=== PATIENT | female | born 1970 | race Caucasian/White ===

== ENCOUNTER 2019-10-12 15:47 | Emergency (ER) | payer BC ==
[~2019-10-12] VITALS: Ht 154.9 cm; Wt 74.4 kg
[2019-10-12 15:56] VITALS: Ht 154.9 cm; Wt 74.4 kg
[2019-10-12 16:52] LABS: CALCIUM 8.4 mg/dL (8.5-10.1); CARBON DIOXIDE 23.5 mmol/L (21-32); CHLORIDE SERUM 98 mmol/L (98-107); CREATININE SERUM 0.7 mg/dL (0.6-1.0); GFR1 > 60 mL/min; GLUCOSE SERUM 150 mg/dL (74-106); POTASSIUM SERUM 3.8 mmol/L (3.5-5.1); SODIUM SERUM 132 mmol/L (136-145)
[2019-10-12 16:57] LABS: ALKALINE PHOSPHATASE 85 U/L (46-116); ALT/SGPT 30 U/L (14-59); AST/SGOT 15 U/L (15-37); BILIRUBIN TOTAL 0.5 mg/dL (0.20-1.00); TOTAL PROTEIN, SERUM 6.9 g/dL (6.4-8.2)
[2019-10-12 17:04] LABS: ALBUMIN 3.3 g/dL (3.4-5.0)
[2019-10-12 17:12] LABS: BASOPHIL % 0.4 % (0-2)
[2019-10-12 17:14] LABS: PLATELET COUNT 437 x10^3mcL (130-400); RED CELL DISTRIBUTION WIDTH 22.5 % (11.5-14.5)
[2019-10-12 17:54] LABS: rbc morphology (normal/abnorm) ABNORMAL (NORMAL)
[2019-10-12 18:28] VITALS: BP 125/74
== END 2019-10-12 18:28 | disposition home or self-care (01) ==
LOC: ED 15:47
PROVIDERS: Emergency Medicine
DX: N93.8 Other specified abnormal uterine and vaginal bleeding (principal); D50.0 Iron deficiency anemia secondary to blood loss (chronic); N39.0 Urinary tract infection, site not specified; N83.201 Unspecified ovarian cyst, right side; Z88.1 Allergy status to other antibiotic agents
CPT/HCPCS: Q0092

== ENCOUNTER 2019-10-17 00:53 | Inpatient (IN) | payer BC ==
[~2019-10-17] VITALS: Ht 154.9 cm; Wt 73.9 kg
[2019-10-17 01:04] VITALS: Ht 154.9 cm; Wt 73.9 kg
[2019-10-17 02:57] LABS: BASOPHIL % 0.3 % (0-2)
[2019-10-17 03:00] LABS: RED CELL DISTRIBUTION WIDTH 20.7 % (11.5-14.5)
[2019-10-17 03:01] LABS: CALCIUM 8.4 mg/dL (8.5-10.1); CARBON DIOXIDE 25.1 mmol/L (21-32); CHLORIDE SERUM 104 mmol/L (98-107); CREATININE SERUM 0.6 mg/dL (0.6-1.0); GFR1 > 60 mL/min; GLUCOSE SERUM 119 mg/dL (74-106); PLATELET COUNT 484 x10^3mcL (130-400); POTASSIUM SERUM 3.6 mmol/L (3.5-5.1); SODIUM SERUM 139 mmol/L (136-145)
[2019-10-17 03:02] LABS: rbc morphology (normal/abnorm) ABNORMAL (NORMAL)
[2019-10-17 03:10] LABS: ALBUMIN 3.2 g/dL (3.4-5.0); ALKALINE PHOSPHATASE 75 U/L (46-116); ALT/SGPT 30 U/L (14-59); AST/SGOT 20 U/L (15-37); BILIRUBIN TOTAL 0.6 mg/dL (0.20-1.00); TOTAL PROTEIN, SERUM 6.6 g/dL (6.4-8.2)
[2019-10-17 04:58] LABS: CHOLESTEROL/HDL RATIO 2.5
[2019-10-17 05:08] LABS: T3 TOTAL 1.46 ng/mL
[2019-10-17 05:18] LABS: UA SPECIFIC GRAVITY <=1.005 (1.005-1.035); microscopic required? YES; urine erythrocyte 3+ (NEGATIVE)
[2019-10-17 05:21] LABS: FREE T4 1.22 ng/dL (0.76-1.46); FREE THYROXINE INDEX 3.1 ug/dL (1.4-4.5); T4(THYROXINE) 9.9 ug/dL (4.7-13.3)
[2019-10-17] MEDS ORDERED: IRON236 MG PO (07:51)
[2019-10-17] MEDS ORDERED: VITAMIN D22000 I1 PO (07:51)
[2019-10-17] MEDS ORDERED: FOLBIC RF1 TAB PO (07:51)
[2019-10-17] MEDS ORDERED: B COMPLEX1 EACH PO (07:51)
[2019-10-17 12:27] VITALS: BP 132/79
[2019-10-17 13:09] VITALS: BP 127/71
[2019-10-17 14:16] LABS: rbc morphology (normal/abnorm) ABNORMAL (NORMAL)
[2019-10-17 16:45] VITALS: BP 125/78
[2019-10-17 20:15] VITALS: BP 125/68
[2019-10-17 21:05] LABS: ovalocyte/elliptocyte 2+; rbc morphology (normal/abnorm) ABNORMAL (NORMAL)
[2019-10-18 05:44] VITALS: BP 112/70
[2019-10-18 07:11] LABS: BASOPHIL % 0.5 % (0-2)
[2019-10-18 07:26] LABS: CALCIUM 8.7 mg/dL (8.5-10.1); CARBON DIOXIDE 24.8 mmol/L (21-32); CHLORIDE SERUM 106 mmol/L (98-107); CREATININE SERUM 0.6 mg/dL (0.6-1.0); GFR1 > 60 mL/min; GLUCOSE SERUM 96 mg/dL (74-106); POTASSIUM SERUM 3.7 mmol/L (3.5-5.1); SODIUM SERUM 141 mmol/L (136-145)
[2019-10-18 07:55] VITALS: BP 134/77
[2019-10-18 08:15] LABS: PLATELET COUNT 459 x10^3mcL (130-400)
[2019-10-18 11:06] LABS: ovalocyte/elliptocyte 1+; rbc morphology (normal/abnorm) ABNORMAL (NORMAL); tear drop cell (dacryocyte) 1+
[2019-10-18] MEDS ORDERED: CIPRO500 MG PO (11:55)
[2019-10-18 12:13] VITALS: BP 106/72
[2019-10-18 12:58] VITALS: BP 134/77
== END 2019-10-18 18:27 | disposition home or self-care (01) | DRG 760 ==
LOC: ED 00:53 → DU 03:15
PROVIDERS: Obstetrics & Gynecology; Specialist; ADMIT Internal Medicine; ATTEND Internal Medicine
PROC: 30233N1 Transfusion of Nonautologous Red Blood Cells into Peripheral Vein, Percutaneous Approach (ICD-10-PCS; principal; 2019-10-17)
DX: D25.9 Leiomyoma of uterus, unspecified (principal); N39.0 Urinary tract infection, site not specified; D62 Acute posthemorrhagic anemia; N83.201 Unspecified ovarian cyst, right side; Z90.49 Acquired absence of other specified parts of digestive tract; Z88.8 Allergy status to other drugs, medicaments and biological substances; Z88.0 Allergy status to penicillin
CPT/HCPCS: 84439; G0378; J0696; J7030; J7050; J7060; P9016; Q0092; Q0163